=== PATIENT | male | born 1980 | race African-American/Black ===

== ENCOUNTER 2019-02-16 00:58 | Emergency (ER) | payer OTHER ==
[~2019-02-16] VITALS: Ht 167.6 cm; Wt 81.6 kg
[2019-02-16 01:28] LABS: BASO # 0.1 x10^3/uL (0.0-0.2); BASO % 1 % (0-3); EOS # 0.2 x10^3/uL (0.0-0.7); EOS % 2 % (0-3); HEMATOCRIT 41.4 % (39.0-53.0); HEMOGLOBIN 13.6 g/dL (13.0-17.5); LYMPH # 3.6 x10^3/uL (1.0-4.8); LYMPH % 32 % (24-48); MEAN CORPUSCULAR HEMOGLOBIN 28 pg (25-35); MEAN CORPUSCULAR HGB CONC 33 g/dL (31-37); MEAN CORPUSCULAR VOLUME 85 fL (79-100); MONO % 9 % (0-9); NEUT # 6.3 x10^3uL (1.8-7.7); NEUT % 57 % (31-73); PLATELET COUNT 247 x10^3/uL (140-400); RED BLOOD COUNT 4.89 x10^6/uL (4.30-5.70); WHITE BLOOD COUNT 11.2 x10^3/uL (4.0-11.0)
[2019-02-16] MEDS ORDERED: KETOROLAC 15 MG/ML VIAL. IV ONE (01:30)
[2019-02-16] MEDS ORDERED: FAMOTIDINE 20 MG/2 ML VIAL IVP ONE (01:30)
--- NOTE | 2019-02-16 01:46 | PHYS DOC ---
Past Medical History Past Medical History: No Pertinent History Past Surgical History: No Surgical History Smoking: Cigarettes Alcohol Use: None Drug Use: None Adult General Chief Complaint Chief Complaint: CHEST PAIN HPI HPI Patient is a 38 year old [f__sex] who presents with [] Review of Systems Review of Systems Constitutional: Denies fever or chills [] Eyes: Denies change in visual acuity, redness, or eye pain [] HENT: Denies nasal congestion or sore throat [] Respiratory: Denies cough or shortness of breath [] Cardiovascular: No additional information not addressed in HPI [] GI: Denies abdominal pain, nausea, vomiting, bloody stools or diarrhea [] : Denies dysuria or hematuria [] Musculoskeletal: Denies back pain or joint pain [] Integument: Denies rash or skin lesions [] Neurologic: Denies headache, focal weakness or sensory changes [] Endocrine: Denies polyuria or polydipsia [] All other systems were reviewed and found to be within normal limits, except as documented in this note. Current Medications Current Medications Current Medications Medications (Trade) Dose Ordered Sig/Christal Start Time Stop Time Status Last Admin Dose Admin Famotidine (Pepcid Vial) 20 mg 1X ONCE 02/16/19 01:30 02/16/19 01:31 DC 02/16/19 02:03 20 MG Ketorolac Tromethamine (Toradol 15mg Vial) 15 mg 1X ONCE 02/16/19 01:30 02/16/19 01:31 DC 02/16/19 02:03 15 MG Allergies Allergies Allergies Coded Allergies Type Severity Reaction Last Updated Verified No Known Drug Allergies 02/16/19 No Physical Exam Physical Exam Constitutional: Well developed, well nourished, no acute distress, non-toxic appearance. [] HENT: Normocephalic, atraumatic, bilateral external ears normal, oropharynx moist, no oral exudates, nose normal. [] Eyes: PERRLA, EOMI, conjunctiva normal, no discharge. [] Neck: Normal range of motion, no tenderness, supple, no stridor. [] Cardiovascular:Heart rate regular rhythm, no murmur [] Lungs & Thorax: Bilateral breath sounds clear to auscultation [] Abdomen: Bowel sounds normal, soft, no tenderness, no masses, no pulsatile masses. [] Skin: Warm, dry, no erythema, no rash. [] Back: No tenderness, no CVA tenderness. [] Extremities: No tenderness, no cyanosis, no clubbing, ROM intact, no edema. [] Neurologic: Alert and oriented X 3, normal motor function, normal sensory function, no focal deficits noted. [] Psychologic: Affect normal, judgement normal, mood normal. [] Current Patient Data Vital Signs Vital Signs Date Time Temp Pulse Resp B/P (MAP) Pulse Ox O2 Delivery O2 Flow Rate FiO2 02/16/19 01:05 99.0 73 16 140/84 (102) 97 Room Air 99.0 Lab Values Laboratory Tests Test 02/16/19 01:20 02/16/19 01:45 02/16/19 03:20 White Blood Count 11.2 x10^3/uL (4.0-11.0) H Red Blood Count 4.89 x10^6/uL (4.30-5.70) Hemoglobin 13.6 g/dL (13.0-17.5) Hematocrit 41.4 % (39.0-53.0) Mean Corpuscular Volume 85 fL (79-100) Mean Corpuscular Hemoglobin 28 pg (25-35) Mean Corpuscular Hemoglobin Concent 33 g/dL (31-37) Red Cell Distribution Width 14.0 % (11.5-14.5) Platelet Count 247 x10^3/uL (140-400) Neutrophils (%) (Auto) 57 % (31-73) Lymphocytes (%) (Auto) 32 % (24-48) Monocytes (%) (Auto) 9 % (0-9) Eosinophils (%) (Auto) 2 % (0-3) Basophils (%) (Auto) 1 % (0-3) Neutrophils # (Auto) 6.3 x10^3uL (1.8-7.7) Lymphocytes # (Auto) 3.6 x10^3/uL (1.0-4.8) Monocytes # (Auto) 1.0 x10^3/uL (0.0-1.1) Eosinophils # (Auto) 0.2 x10^3/uL (0.0-0.7) Basophils # (Auto) 0.1 x10^3/uL (0.0-0.2) Prothrombin Time 13.0 SEC (11.7-14.0) Prothrombin Time INR 1.0 (0.8-1.1) PTT 28 SEC (24-38) Sodium Level 142 mmol/L (136-145) Potassium Level 4.0 mmol/L (3.5-5.1) Chloride Level 104 mmol/L (98-107) Carbon Dioxide Level 26 mmol/L (21-32) Anion Gap 12 (6-14) Blood Urea Nitrogen 15 mg/dL (8-26) Creatinine 1.0 mg/dL (0.7-1.3) Estimated GFR (Cockcroft-Gault) 102.3 BUN/Creatinine Ratio 15 (6-20) Glucose Level 102 mg/dL (70-99) H Calcium Level 9.0 mg/dL (8.5-10.1) Magnesium Level 1.8 mg/dL (1.8-2.4) Total Bilirubin 0.7 mg/dL (0.2-1.0) Aspartate Amino Transferase (AST) 21 U/L (15-37) Alanine Aminotransferase (ALT) 45 U/L (16-63) Alkaline Phosphatase 71 U/L (46-116) Creatine Kinase 288 U/L (39-308) Creatine Kinase MB (Mass) 0.8 ng/mL (0.0-3.6) Creatine Kinase MB Relative Index 0.3 % (0-4) Troponin I Quantitative < 0.017 ng/mL (0.000-0.055) < 0.017 ng/mL (0.000-0.055) SI-Gsm-B-Type Natriuretic Peptide 6 pg/mL (0-124) Total Protein 7.8 g/dL (6.4-8.2) Albumin 4.2 g/dL (3.4-5.0) Albumin/Globulin Ratio 1.2 (1.0-1.7) Lipase 174 U/L (73-393) Laboratory Tests 02/16/19 01:20 Laboratory Tests 02/16/19 01:45 EKG EKG @0106 NSR at 63bpm, NO ST elevation, nonspecific t wave inversion V1-V4 Radiology/Procedures Radiology/Procedures [] Course & Med Decision Making Course & Med Decision Making Pertinent Labs and Imaging studies reviewed. (See chart for details) [] Dragon Disclaimer Dragon Disclaimer This electronic medical record was generated, in whole or in part, using a voice recognition dictation system. Departure Departure Impression: Primary Impression: Chest pain Disposition: HOME, SELF-CARE Condition: STABLE Referrals: NO PCP (PCP) Patient Instructions: Chest Pain (Nonspecific), Pomm-nm-Swcc Scripts Famotidine (PEPCID) 20 Mg Tablet 20 MG PO BID, #20 TAB Prov: HUBERT CRUZ DO 02/16/19 Problem Qualifiers Primary Impression: Chest pain Chest pain type: unspecified Qualified Codes: R07.9 - Chest pain, unspecif ied HUBERT CRUZ DO February 16, 2019 01:46
[2019-02-16 02:05] LABS: GFR 102.3
[2019-02-16 02:11] LABS: ALBUMIN 4.2 g/dL (3.4-5.0); ALBUMIN/GLOBULIN RATIO 1.2 (1.0-1.7); MAGNESIUM 1.8 mg/dL (1.8-2.4); TOTAL BILIRUBIN 0.7 mg/dL (0.2-1.0); TOTAL PROTEIN 7.8 g/dL (6.4-8.2)
--- NOTE | 2019-02-16 02:20 | RAD ---
PROCEDURE: CHEST PA LATERAL CLINICAL INDICATION: Chest pain COMPARISON: None FINDINGS: No pneumothorax identified. Cardiac and mediastinal contours unremarkable. No pulmonary consolidation or acute airspace disease. No acute osseous abnormalities identified. IMPRESSION: No pulmonary consolidation or acute airspace disease. Electronically signed by: Boogie Juarez DO (02/16/2019 2:17 AM) [facility]
[2019-02-16] MEDS ORDERED: FAMO-63 PO (03:56)
[2019-02-16 04:10] VITALS: BP 144/73
--- NOTE | 2019-02-16 06:07 | EKG ---
[facility] [address] [place] [address] Test Date: 2019-02-16 Test Time: 01:06:49 Pat Name: DARIUSZ MCKENZIE Department: Room: Gender: M V/[employer] [place] Signal Officer: SERG : 1980 Requested By: HUBERT CRUZ Order Number: [id number] Reading MD: Measurements Intervals [place] Rate: 63 P: 52 [place]: 164 QRS: 34 QRSD: 92 T: 27 QT: 384 QTc: 396 Interpretive Statements SINUS RHYTHM T ABNORMALITY IN ANTERIOR LEADS ABNORMAL ECG RI6.01 Unconfirmed report No previous ECG available for comparison
== END 2019-02-16 04:10 | disposition home or self-care (01) ==
LOC: ER 00:58
DX: R07.2 Precordial pain (principal); F17.210 Nicotine dependence, cigarettes, uncomplicated
CPT/HCPCS: 36415; 71046; 80053; 82553; 83690; 83735; 83880; 84484; 85025; 85610; 85730; 93005; 96374; 96375; 99285; J1885; J3490

== ENCOUNTER 2021-09-18 09:17 | Emergency (ER) | payer OTHER ==
[~2021-09-18] VITALS: Ht 167.6 cm; Wt 72.0 kg
[~2021-09-18 09:17] MED LIST: FAMO-63 PO
[2021-09-18 09:33] VITALS: BP 140/71
--- NOTE | 2021-09-18 09:41 | PHYS DOC ---
Past Medical History Additional Past Medical Histor: "Chemical imbalance" Past Surgical History: No Surgical History Smoking Status: Current Every Day Smoker Alcohol Use: None Drug Use: Marijuana General Adult EDM: Chief Complaint: FOOT INJURY PAIN HPI: HPI: Patient is a 41 year old male who presents with swelling of his left foot. States that he stepped on some wood and had a splinter at the lateral base of his foot near the balls of his feet. States that he removed the splinter. Over the past few days pain has been increasing. He has had some redness and swelling in the area. Denies fever, chills, nausea, vomiting, or other systemic symptoms. Pain is worse with weightbearing. Has not taken any vyvb-uwo-idgjuak meds for pain control. Review of Systems: Review of Systems: Constitutional: Denies fever or chills. [] Eyes: Denies change in visual acuity. [] HENT: Denies nasal congestion or sore throat. [] Respiratory: Denies cough or shortness of breath. [] Cardiovascular: Denies chest pain or edema. [] GI: Denies abdominal pain, nausea, vomiting, bloody stools or diarrhea. [] : Denies dysuria. [] Musculoskeletal: Reports left foot pain, redness, swelling. Integument: Denies rash. [] Neurologic: Denies headache, focal weakness or sensory changes. [] Psychiatric: Denies depression or anxiety. [] Heart Score: C/O Chest Pain: No Allergies: Allergies: Allergies Coded Allergies Type Severity Reaction Last Updated Verified No Known Drug Allergies 02/16/19 No Physical Exam: PE: Constitutional: Well developed, well nourished, no acute distress, non-toxic appearance. [] HENT: Normocephalic, atraumatic Cardiovascular: Tachycardic, regular Lungs & Thorax: Normal work of breathing Skin: Warm, dry, no erythema, no rash. [] Back: No tenderness, no CVA tenderness. [] Extremities: Left foot with redness, warmth, and mild swelling over the dorsal aspect. Mild tenderness over the area of redness and on the balls of the feet on the lateral 3 metatarsals. DP pulse 2+, PT pulse 2+. Normal active range of motion of the ankle and toes. Neurologic: Alert and oriented X 3, normal motor function, normal sensory function, no focal deficits noted. [] Psychologic: Affect normal, judgement normal, mood normal. [] EKG: EKG: [] Radiology/Procedures: Radiology/Procedures: [] Impression: [facility] [address] [place] [address] IMAGING REPORT Signed PATIENT: DARIUSZ MCKENZIE ACCOUNT: [id number] : 1980 LOCATION: ER AGE: 41 SEX: M EXAM STATUS: REG ER ORD. PHYSICIAN: SILVER DYER MD REASON: swelling pain over distal lateral metatarsals PROCEDURE: FOOT LEFT 3V EXAM: 3 views of the left foot DATE: 09/18/2021 9:36 AM INDICATION: Reason: swelling pain over distal lateral metatarsals / Spl. Instructions: / History: COMPARISON: No Prior FINDINGS: No acute fracture or dislocation. Old/healed proximal phalanx second, third and fourth toe fractures. Mild deformity fourth metatarsal neck. Joint spaces are preserved without significant degenerative/proliferative change. Mild forefoot soft tissue swelling. IMPRESSION: No acute fracture or dislocation. Old/healed proximal phalanx second, third and fourth toes. Mild deformity fourth metatarsal neck likely old/healed fracture. Electronically signed by: Roel Leyva MD (09/18/2021 10:38 AM) [facility] DICTATED and SIGNED BY: ROEL LEYVA MD DATE: 09/18/21 [id number] Course & Med Decision Making: Course & Med Decision Making Pertinent Labs and Imaging studies reviewed. (See chart for details) Patient a 41-year-old male who presents with left foot pain after removing a splinter 3 days ago. On exam he has redness, mild swelling consistent with cellulitis of the foot. No systemic symptoms. Afebrile here. He is mildly tachycardic on arrival. Will provide with Tylenol, ibuprofen, recheck. With no systemic sx I doubt that this represents osteomyeletis. No pain out of proportion, nectrotic material, crepitus etc to suggest NSTI. Will given Rx for doxycycline and request that he have his foot re-evaluated in the next 5 days. Return precautions for fever/chills, worsening swelling, redness, pain. [id number] Natasha Disclaimer: Natasha Disclaimer: This electronic medical record was generated, in whole or in part, using a voice recognition dictation system. Departure Departure Impression: Primary Impression: Cellulitis of foot Disposition: HOME / SELF CARE / HOMELESS Condition: STABLE Referrals: NO PCP (PCP) Patient Instructions: Cellulitis Additional Instructions: I would like you to have this foot reevaluated in approximately 5 days to ensure that your symptoms are improving. Please either see a primary care doctor, or return to the emergency department. If your symptoms are worsening, you have spreading redness, pain, fever/chills, or other new/concerning symptoms please return to the emergency department for reevaluation. Please pickle pumper your antibiotics and take the full 7 days as prescribed. For pain tylenol and ibuprofen are best used on a schedule. Please alternate between the two. -Tylenol 1000 mg every 6 hours (do not exceed 4000 mg in one day) -Ibuprofen 400 mg every 6 hours. Take with food. Do not take for more than 1 week. If you do not have a PCP, please call the number for the [facility] at [phone]. Scripts Doxycycline Monohydrate (DOXYCYCLINE MONOHYDRATE) 100 Mg Capsule 1 CAP PO BID for 7 Days, #14 CAP 0 Refills Prov: SILVER DYER MD 09/18/21 SILVER DYER MD Sep 18, 2021 09:41
[2021-09-18] MEDS ORDERED: DOXY-181 PO (09:43)
[2021-09-18] MEDS ORDERED: IBUPROFEN 200 MG TABLET. PO ONE (09:45)
[2021-09-18] MEDS ORDERED: ACETAMINOPHEN 500 MG TABLET PO ONE (09:45)
--- NOTE | 2021-09-18 10:40 | RAD ---
EXAM: 3 views of the left foot DATE: 09/18/2021 9:36 AM INDICATION: Reason: swelling pain over distal lateral metatarsals / Spl. Instructions: / History: COMPARISON: No Prior FINDINGS: No acute fracture or dislocation. Old/healed proximal phalanx second, third and fourth toe fractures. Mild deformity fourth metatarsal neck. Joint spaces are preserved without significant degenerative/p roliferative change. Mild forefoot soft tissue swelling. IMPRESSION: No acute fracture or dislocation. Old/healed proximal phalanx second, third and fourth toes. Mild deformity fourth metatarsal neck like ly old/healed fracture. Electronically signed by: Roel Leyva MD (09/18/2021 10:38 AM) [facility]
== END 2021-09-18 11:05 | disposition home or self-care (01) ==
LOC: ER 09:17
DX: L03.116 Cellulitis of left lower limb (principal); F17.200 Nicotine dependence, unspecified, uncomplicated
CPT/HCPCS: 73630; 99283

== ENCOUNTER 2021-12-16 04:44 | Emergency (ER) | payer OTHER ==
[~2021-12-16] VITALS: Ht 170.2 cm; Wt 68.0 kg
[~2021-12-16 04:44] MED LIST changes: +DOXY-181 PO
[2021-12-16 05:52] LABS: CALCIUM 9.3 mg/dL (8.5-10.1); GFR 100.7; POTASSIUM 4.3 mmol/L (3.5-5.1)
--- NOTE | 2021-12-16 05:56 | PHYS DOC ---
Past Medical History Additional Past Medical Histor: "Chemical imbalance" (RIKA RYDER MD) Past Surgical History: No Surgical History (RIKA RYDER MD) Smoking Status: Never Smoker Alcohol Use: None Drug Use: Marijuana (RIKA RYDER MD) Adult General Chief Complaint Chief Complaint: NAUSEA/VOMITING/DIARRHEA HPI HPI The patient is a 41-year-old male with a history of psychiatric illness on oral haloperidol, but noncompliant for quite some time. He is a frequent marijuana smoker. Mr. Posadas presents for evaluation of copious nonbloody vomiting with onset about 3 hours prior to arrival. Associated epigastric discomfort, mild. Has vomited more than 10 times in total. [place] well when he went to bed. Has a history of very similar episodes of paroxysmal vomiting in the past per patient and his mother. No fevers, hematemesis, hematochezia or melena, upper respiratory congestion/rhinorrhea, cough, sore throat, shortness of breath or chest pain of any kind, right-sided or lower abdominal pain of any kind, flank pain, midline back pain, dysuria, hematuria, polyuria or oliguria, changes in bowel habits. Vital signs are appropriate here and the patient is in no acute distress. (RIKA RYDER MD) Review of Systems Review of Systems A 12 point review of systems was completed and was negative except where noted in HPI above. (RIKA RYDER MD) Current Medications Current Medications Current Medications Medications (Trade) Dose Ordered Sig/Christal Start Time Stop Time Status Last Admin Dose Admin Diphenhydramine HCl (Benadryl) 25 mg 1X ONCE 12/16/21 06:00 12/16/21 06:01 DC 12/16/21 05:27 25 MG Haloperidol Lactate (Haldol Inj) 5 mg 1X ONCE 12/16/21 06:00 12/16/21 06:01 DC 12/16/21 05:26 5 MG Sodium Chloride 1,000 ml @ 1,000 mls/hr 1X ONCE 12/16/21 06:00 12/16/21 06:59 DC 12/16/21 05:27 1,000 MLS/HR (SARWAT AYERSN M DO) Allergies Allergies Allergies Coded Allergies Type Severity Reaction Last Updated Verified No Known Drug Allergies 12/16/21 No (SARWAT AYERSN M DO) Physical Exam Physical Exam 41-year-old male appearing nontoxic and in no acute distress. Head is normocephalic and atraumatic. Neck is supple and nontender. Oropharynx is moist. Lungs are clear to auscultation at all stations. There is a normal S1 and S2 without rubs or gallops and capillary refill is appropriate, less than 2 seconds globally. Abdomen is soft, nondistended and with mild focal epigastric tenderness to palpation without rebound or guarding. No right-sided or lower abdominal tenderness to palpation. Skin is warm and dry without cyanosis, clubbing or edema. Psychiatrically, the patient demonstrates appropriate mood and affect and is alert. (RIKA RYDER MD) Current Patient Data Vital Signs Vital Signs Date Time Temp Pulse Resp B/P (MAP) Pulse Ox O2 Delivery O2 Flow Rate FiO2 12/16/21 06:25 57 18 126/77 (93) 100 Room Air 12/16/21 05:08 98.0 98.0 (ANDRIA,CHUY M DO) Lab Values Laboratory Tests Test 12/16/21 05:05 White Blood Count 12.1 x10^3/uL (4.0-11.0) H Red Blood Count 5.24 x10^6/uL (4.30-5.70) Hemoglobin 15.1 g/dL (13.0-17.5) Hematocrit 45.7 % (39.0-53.0) Mean Corpuscular Volume 87 fL (79-100) Mean Corpuscular Hemoglobin 29 pg (25-35) Mean Corpuscular Hemoglobin Concent 33 g/dL (31-37) Red Cell Distribution Width 14.5 % (11.5-14.5) Platelet Count 236 x10^3/uL (140-400) Neutrophils (%) (Auto) 79 % (31-73) H Lymphocytes (%) (Auto) 17 % (24-48) L Monocytes (%) (Auto) 4 % (0-9) Eosinophils (%) (Auto) 0 % (0-3) Basophils (%) (Auto) 1 % (0-3) Neutrophils # (Auto) 9.5 x10^3/uL (1.8-7.7) H Lymphocytes # (Auto) 2.0 x10^3/uL (1.0-4.8) Monocytes # (Auto) 0.5 x10^3/uL (0.0-1.1) Eosinophils # (Auto) 0.0 x10^3/uL (0.0-0.7) Basophils # (Auto) 0.1 x10^3/uL (0.0-0.2) Sodium Level 139 mmol/L (136-145) Potassium Level 4.3 mmol/L (3.5-5.1) Chloride Level 105 mmol/L (98-107) Carbon Dioxide Level 23 mmol/L (21-32) Anion Gap 11 (6-14) Blood Urea Nitrogen 9 mg/dL (8-26) Creatinine 1.0 mg/dL (0.7-1.3) Estimated GFR (Cockcroft-Gault) 100.7 BUN/Creatinine Ratio 9 (6-20) Glucose Level 132 mg/dL (70-99) H Calcium Level 9.3 mg/dL (8.5-10.1) Total Bilirubin 0.9 mg/dL (0.2-1.0) Aspartate Amino Transferase (AST) 27 U/L (15-37) Alanine Aminotransferase (ALT) 37 U/L (16-63) Alkaline Phosphatase 65 U/L (46-116) Total Protein 8.2 g/dL (6.4-8.2) Albumin 4.5 g/dL (3.4-5.0) Albumin/Globulin Ratio 1.2 (1.0-1.7) Lipase 49 U/L (73-393) L Ethyl Alcohol Level < 10 mg/dL (0-10) Laboratory Tests 12/16/21 05:05 Laboratory Tests 12/16/21 05:05 (CHUY AYERS DO) EKG EKG [] (RIKA RYDER MD) Radiology/Procedures Radiology/Procedures [] (RIKA RYDER MD) Course & Med Decision Making Course & Med Decision Making 41-year-old gentleman presenting with paroxysmal nonbloody vomiting with onset a little earlier overnight. Smokes marijuana frequently and has a history of similar paroxysmal vomiting episodes in the past per family. Will place IV and give IV fluids and medication for nausea as noted and will check labs and urine and will then reevaluate. 0600: Transition of care to Dr. Ayers pending labs, evaluation of response to medication and reevaluation for disposition. (RIKA RYDER MD) Course & Med Decision Making This patient was initially seen by Dr. Ryder. I assumed care of 0600 this morning. As of 739, the patient is resting comfortably, no further vomiting. I performed my own exam, abdominal exam is unremarkable, I am unable to elicit any tenderness at all. He subjectively denies any abdominal pain. He is drinking fluids without difficulty. I discussed the findings, differential diagnosis and plan of care with him. He does admit to frequent marijuana use. I recommend cessation of this, as this may be contributing to his nausea and vomiting symptoms. He has a PCP with whom he can follow-up. He will be prescribed antiemetics for discharge. I discussed home care instructions, bland diet, drinking clear fluids. No current indication for emergent imaging, further invasive exams or admission at this time based on current clinical presentation. Very strict return precautions are given. The patient is comfortable with the plan of care and is discharged in stable and improved condition. (CHUY AYERS DO) Dragon Disclaimer Dragon Disclaimer This electronic medical record was generated, in whole or in part, using a voice recognition dictation system. (RIKA RYDER MD) Departure Departure Impression: Primary Impression: Acute vomiting Disposition: HOME / SELF CARE / HOMELESS Condition: STABLE Referrals: LUCIO DONNELLY MD (PCP) Patient Instructions: Gastritis, Adult, Nausea and Vomiting Additional Instructions: Use the medication as needed/as directed. Drink clear fluids, eat a bland diet. Avoid marijuana use. Avoid spicy, greasy, fried or very salty foods. Return to the ER immediately for severe abdominal pain, vomiting blood, dehydration, temperature 100.4 or higher or for any other concerns. Please follow-up with your primary care doctor for further evaluation and treatment. Scripts Ondansetron Hcl (ONDANSETRON HCL) 4 Mg Tablet 1 TAB PO PRN Q6HRS for vomiting, #20 TAB 1 Refill Prov: CHUY AYERS DO 12/16/21 Famotidine (PEPCID) 20 Mg Tablet 20 MG PO BID, #60 TAB Prov: CHUY AYERS DO 12/16/21 RIKA RYDER MD Dec 16, 2021 05:56 CHUY AYERS DO Dec 16, 2021 07:46
[2021-12-16 05:58] LABS: ALBUMIN 4.5 g/dL (3.4-5.0); ALBUMIN/GLOBULIN RATIO 1.2 (1.0-1.7); TOTAL BILIRUBIN 0.9 mg/dL (0.2-1.0); TOTAL PROTEIN 8.2 g/dL (6.4-8.2)
[2021-12-16] MEDS ORDERED: HALOPERIDOL LACTATE 5 MG/ML VIAL. IVP ONE (06:00)
[2021-12-16] MEDS ORDERED: IV NORMAL SALINE 1000ML BAG 1,000 ML IV ONE (06:00)
[2021-12-16] MEDS ORDERED: diphenhydrAMINE 50 MG/ML VIAL IVP ONE (06:00)
[2021-12-16 06:11] LABS: BASO # 0.1 x10^3/uL (0.0-0.2); BASO % 1 % (0-3); EOS % 0 % (0-3); HEMATOCRIT 45.7 % (39.0-53.0); HEMOGLOBIN 15.1 g/dL (13.0-17.5); LYMPH % 17 % (24-48); MEAN CORPUSCULAR HEMOGLOBIN 29 pg (25-35); MEAN CORPUSCULAR HGB CONC 33 g/dL (31-37); MEAN CORPUSCULAR VOLUME 87 fL (79-100); MONO # 0.5 x10^3/uL (0.0-1.1); MONO % 4 % (0-9); NEUT # 9.5 x10^3/uL (1.8-7.7); NEUT % 79 % (31-73); PLATELET COUNT 236 x10^3/uL (140-400); RED BLOOD COUNT 5.24 x10^6/uL (4.30-5.70); RED CELL DISTRIBUTION WIDTH 14.5 % (11.5-14.5); WHITE BLOOD COUNT 12.1 x10^3/uL (4.0-11.0)
[2021-12-16] MEDS ORDERED: FAMO-63 PO (07:46)
[2021-12-16] MEDS ORDERED: ONDA-84 PO (07:46)
[2021-12-16 07:50] VITALS: BP 124/73
== END 2021-12-16 07:51 | disposition home or self-care (01) ==
LOC: ER 04:44
DX: R11.10 Vomiting, unspecified (principal)
CPT/HCPCS: 36415; 80053; 83690; 85025; 96361; 96374; 96375; 99285; G0480; J1200; J1630; J7030

== ENCOUNTER 2021-12-17 21:45 | Emergency (ER) | payer OTHER ==
[~2021-12-17] VITALS: Ht 167.6 cm; Wt 69.1 kg
[~2021-12-17 21:45] MED LIST changes: +ONDA-84 PO
[2021-12-17 21:48] VITALS: BP 102/73
== END 2021-12-17 23:13 | disposition left against medical advice (07) ==
LOC: ER 21:45
DX: R11.2 Nausea with vomiting, unspecified (principal); R19.7 Diarrhea, unspecified; R53.1 Weakness; Z53.21 Procedure and treatment not carried out due to patient leaving prior to being seen by health care provider

== ENCOUNTER 2021-12-19 06:25 | Emergency (ER) | payer OTHER ==
[~2021-12-19] VITALS: Ht 167.6 cm; Wt 70.9 kg
[2021-12-19] MEDS ORDERED: IV NORMAL SALINE 1000ML BAG 1,000 ML IV SCH (06:45)
[2021-12-19] MEDS ORDERED: HALOPERIDOL LACTATE 5 MG/ML VIAL. IM ONE (06:45)
[2021-12-19] MEDS ORDERED: KETOROLAC 30 MG/ML VIAL. IVP ONE (06:45)
--- NOTE | 2021-12-19 06:48 | PHYS DOC ---
Past Medical History Additional Past Medical Histor: "brain Chemical imbalance" Past Surgical History: No Surgical History Smoking Status: Never Smoker Alcohol Use: None Drug Use: Marijuana General Adult EDM: Chief Complaint: GENERALIZED BODY ACHES HPI: HPI: Patient is a 41 year old male presents with diffuse abdominal pain dry heaving nausea. Patient reports generalized body aches. Patient was recently seen in the ER for similar symptoms. Patient denies any fevers or chills. States he fe els fatigued no sick contacts. Patient does admit to smoking marijuana on a daily basis. Patient states that taking a hot shower does make the belly pain and nausea better. Review of Systems: Review of Systems: Constitutional: Denies fever or chills. Body aches fatigue Eyes: Denies change in visual acuity. HENT: Denies nasal congestion or sore throat. Respiratory: Denies cough or shortness of breath. Cardiovascular: Denies chest pain or edema. GI: Diffuse abdominal pain, nausea dry retching : Denies dysuria. Musculoskeletal: Denies back pain or joint pain. Integument: Denies rash. Neurologic: Denies headache, focal weakness or sensory changes. Endocrine: Denies polyuria or polydipsia. Lymphatic: Denies swollen glands. Psychiatric: Denies depression or anxiety. Heart Score: C/O Chest Pain: No Risk Factors: Risk Factors: DM, Current or recent (<one month) smoker, HTN, HLP, family history of CAD, obesity. Risk Scores: Score 0 - 3: 2.5% MACE over next 6 weeks - Discharge Home Score 4 - 6: 20.3% MACE over next 6 weeks - Admit for Clinical Observation Score 7 - 10: 72.7% MACE over next 6 weeks - Early Invasive Strategies Allergies: Allergies: Allergies Coded Allergies Type Severity Reaction Last Updated Verified No Known Drug Allergies 12/16/21 No Physical Exam: PE: Constitutional: Well developed, well nourished, no acute distress, non-toxic appearance. HENT: Normocephalic, atraumatic, bilateral external ears normal, oropharynx dry, no oral exudates, nose normal. Eyes: PERRLA, EOMI, conjunctiva normal, no discharge. [ Neck: Normal range of motion, no tenderness, supple, no stridor. [ Cardiovascular:Heart rate regular rhythm, no murmur Lungs & Thorax: Bilateral breath sounds clear to auscultation Abdomen: Bowel sounds hyperactive mild diffuse tenderness. No point tenderness. No rebound pain. Abdomen is soft Skin: Warm, dry, no erythema, no rash. Back: No tenderness, no CVA tenderness. Extremities: No tenderness, no cyanosis, no clubbing, ROM intact, no edema. Neurologic: Alert and oriented X 3, normal motor function, normal sensory function, no focal deficits noted. Psychologic: Affect normal, judgement normal, mood normal. Current Patient Data: Labs: CBC - BMP 12/19/21 06:55 Vital Signs: Vital Signs Label Value Date Time Blood Pressure Assessment 125/99 (108) 12/19/21 0633 Location Right Arm Source Automatic Cuff Position Supine EKG: EKG: Patient is EKG has a heart rate of 53 sinus bradycardia with a QTC of 392. Radiology/Procedures: Radiology/Procedures: [] Course & Med Decision Making: Course & Med Decision Making Pertinent Labs and Imaging studies reviewed. (See chart for details) Patient was reassessed states that he feels much better and strict return prec autions were discussed. Cessation of marijuana abuse was recommended to the patient. Patient states that he does have follow-up with a psychiatrist will continue to follow-up. Patient states that he has been self-medicating with marijuana due to psychological issues. Dragon Disclaimer: Dragon Disclaimer: This electronic medical record was generated, in whole or in part, using a voice recognition dictation system. Departure Departure Impression: Primary Impression: Cyclic vomiting syndrome Additional Impressions: Marijuana abuse Dehydration Disposition: HOME / SELF CARE / HOMELESS Condition: IMPROVED Referrals: LUCIO DONNELLY MD (PCP) Patient Instructions: Cyclic Vomiting Syndrome, Dehydration, Adult YOBANI FLOWERS DO Dec 19, 2021 06:48
[2021-12-19 07:16] LABS: CALCIUM 8.3 mg/dL (8.5-10.1); GFR 100.7; POTASSIUM 3.6 mmol/L (3.5-5.1)
[2021-12-19 07:20] LABS: BASO % 1 % (0-3); EOS % 0 % (0-3); HEMATOCRIT 43.3 % (39.0-53.0); HEMOGLOBIN 14.2 g/dL (13.0-17.5); LYMPH # 1.2 x10^3/uL (1.0-4.8); LYMPH % 16 % (24-48); MEAN CORPUSCULAR HEMOGLOBIN 28 pg (25-35); MEAN CORPUSCULAR HGB CONC 33 g/dL (31-37); MEAN CORPUSCULAR VOLUME 86 fL (79-100); MONO # 0.4 x10^3/uL (0.0-1.1); MONO % 5 % (0-9); NEUT # 5.7 x10^3/uL (1.8-7.7); NEUT % 78 % (31-73); PLATELET COUNT 215 x10^3/uL (140-400); RED BLOOD COUNT 5.02 x10^6/uL (4.30-5.70); RED CELL DISTRIBUTION WIDTH 13.9 % (11.5-14.5); WHITE BLOOD COUNT 7.3 x10^3/uL (4.0-11.0)
[2021-12-19 07:22] LABS: ALBUMIN 3.9 g/dL (3.4-5.0); ALBUMIN/GLOBULIN RATIO 1.3 (1.0-1.7); TOTAL BILIRUBIN 1.5 mg/dL (0.2-1.0)
[2021-12-19 07:41] LABS: BARBITURATES NEG (NEG); BENZODIAZEPINES NEG (NEG); CANNABINOIDS POS (NEG); COCAINE NEG (NEG); METHADONE NEG (NEG); OPIATES NEG (NEG); PHENCYCLIDINE NEG (NEG)
[2021-12-19 07:43] LABS: AMPHETAMINE/METHAMPHETAMINE NEG (NEG)
[2021-12-19 08:17] LABS: BACTERIA,URINE 0 /HPF (0-FEW); RBC,URINE OCC /HPF (0-2); WBC,URINE 0 /HPF (0-4)
[2021-12-19 08:25] VITALS: BP 105/64
--- NOTE | 2021-12-20 06:19 | EKG ---
[facility] [address] [place] [address] Test Date: 1999-09-19 Test Time: 18:37:10 Pat Name: DARIUSZ MCKENZIE Department: Room: Gender: M [employer]: : 1980 Requested By: YOBANI FLOWERS Order Number: [id number] Reading MD: Measurements Intervals [place] Rate: 53 P: 56 IN: 152 QRS: 32 QRSD: 92 T: 40 QT: 416 QTc: 392 Interpretive Statements SINUS BRADYCARDIA AXIS NORMAL CONSIDERING AGE INCOMPLETE RIGHT BUNDLE BRANCH BLOCK OTHERWISE NORMAL ECG RI6.02 No previous ECG available for comparison
== END 2021-12-19 08:25 | disposition home or self-care (01) ==
LOC: ER 06:25
DX: R11.15 Cyclical vomiting syndrome unrelated to migraine (principal); F12.10 Cannabis abuse, uncomplicated; E86.0 Dehydration; R53.83 Other fatigue
CPT/HCPCS: 36415; 80053; 80307; 81001; 83690; 85025; 93005; 96361; 96372; 96374; 99284; J1630; J1885; J7030